=== PATIENT | female | born 1970 | race Caucasian/White ===

== ENCOUNTER 2025-05-28 15:07 | Outpatient (CLI) | payer BC, SELFPAY | END 2025-05-28 15:08 | disposition home or self-care (01) | PROVIDERS: PCP Student in an Organized Health Care Education/Training Program; Visit Provider Obstetrics & Gynecology | DX: R23.2 Flushing (principal) | CPT/HCPCS: 80076; 84443 ==

== ENCOUNTER 2025-06-01 15:50 | Outpatient (CLI) | payer BC, SELFPAY ==
--- NOTE | 2025-06-01 16:00 | CRLHL7_ITS ---
For Patients: As a result of the Century Cures Act, medical imaging exams and procedure reports are released immediately into your electronic medical record. You may view this report before your referring provider. If you have questions, please contact your health care provider. Indication: postmenopausal atrophic vaginitis, tenderness at vaginal cuff, s/p TVH 2013, dyspareunia Technique: Real-time sonographic images of the pelvis were obtained transabdominally and transvaginally (for better assessment or to better visualize the endometrium) utilizing grayscale, color, and Doppler imaging. Comparison: None. Findings: Suboptimal examination secondary to patient discomfort with pressure. Uterus: Status post hysterectomy. Right ovary: Not well visualized. Left ovary: Not well visualized. Free fluid: None. Small calcifications of the vagina are seen. Impression: 1. Suboptimal examination secondary to patient discomfort with pressure. 2. Status post hysterectomy. 3. Bilateral ovaries were not well visualized. 4. Small nonspecific calcifications of the vagina are seen. Dictated by Bi Higginbotham MD @ 06/02/2025 3:24:17 PM (Electronically Signed)
== END 2025-06-01 15:51 | disposition home or self-care (01) ==
PROVIDERS: PCP Student in an Organized Health Care Education/Training Program; Visit Provider Obstetrics & Gynecology
DX: N95.2 Postmenopausal atrophic vaginitis (principal); Z90.710 Acquired absence of both cervix and uterus
CPT/HCPCS: 76830; 76856